=== PATIENT | female | born 2000 | race African-American/Black ===

== ENCOUNTER 2021-05-27 16:47 | Emergency (ER) | payer BC ==
[2021-05-27] MEDS ORDERED: Clindamycin HCl 150 MG Cap PO ONE (17:30)
[2021-05-27] MEDS ORDERED: Acetaminophen/HYDROcodone 325-5 MG Tab PO ONE (17:30)
--- NOTE | 2021-05-27 17:39 | EDM.PDOC ---
ED HPI GENERAL MEDICAL PROBLEM - General Chief Complaint: ENT Problem Stated Complaint: TOOTH PAIN Time Seen by Provider: 05/27/21 17:03 Source of Information: Reports: Patient History Limitations: Reports: No Limitations - History of Present Illness INITIAL COMMENTS - FREE TEXT/NARRATIVE: 20-year-old female presents the emergency department with complaints of dental pain. The patient states that she broke her tooth about a year ago however has been unable to get to a dentist but would not elaborate as to why. She states that approximately 45 minutes ago while she was at work she developed severe pain to her left lower molar, tooth number 17. She states that it is a constant piercing pain to that area and is tearful. Patient states she did take Tylenol however this did not help. She again reiterates that she has been unable to get to a dentist as she just moved here from [place]. Left Tooth/Teeth Pain Score (Numeric/FACES): 10 - Related Data Allergies Allergy/AdvReac Type Severity Reaction Status Date / Time No Known Allergies Allergy Verified 05/27/21 17:05 Home Meds: Home Meds . [No Known Home Meds] 05/27/21 [History] Past Medical History - Past Health History Medical/Surgical History: Denies Medical/Surgical History Social & Family History - Tobacco Use Tobacco Use Status *Q: Never Tobacco User Second Hand Smoke Exposure: No - Recreational Drug Use Recreational Drug Use: No ED ROS ENT - Review of Systems Review Of Systems: Comprehensive ROS is negative, except as noted in HPI. ED EXAM, ENT - Physical Exam Exam: See Below Exam Limited By: No Limitations General Appearance: Alert, WD/WN, Moderate Distress Ears: Normal External Exam, Hearing Grossly Normal Nose: Normal Inspection Mouth/Throat: Normal Inspection, Dental Pain (Left lower molar #17), Gum Swelling (Around left lower molar #17), Other (Left lower molar #17 broken) Head: Atraumatic, Normocephalic Neck: Normal Inspection Respiratory/Chest: No Respiratory Distress, No Accessory Muscle Use Cardiovascular: Regular Rate, Rhythm GI/Abdominal: No Distention (Female) Exam: Deferred Rectal (Female) Exam: Deferred Back: Normal Inspection Extremities: Normal Inspection Neurological: Alert, Oriented, Normal Cognition Psychiatric: Tearful Skin: Warm, Dry, Intact, Normal Color, No Rash Lymphatic: No Adenopathy Course - Vital Signs Text/Narrative:: As stated above the patient developed dental pain to her left lower molar, tooth #17. This started approximately 45 minutes ago and has been constant ever since. The patient is sobbing at the time of my assessment. The gums around the area of the broken tooth are red and swollen. I have ordered for the patient to receive a hydrocodone and 300 mg of clindamycin while in the emergency department. There are no other pharmacies open today as it is Friday so I will send a prescription to the [facility] for hydrocodone to be taken 1-2 tabs every 6 hours as needed for severe pain and clindamycin 300 mg to be taken 4 times daily x7 days. We will provide her with a number of the dentist in [place] that she hopefully can get into to be seen sometime this week. Last Recorded V/S: Last Vital Signs Temp 96.9 F 05/27/21 17:03 Pulse 100 05/27/21 17:03 Resp 20 05/27/21 17:03 BP 150/96 H 05/27/21 17:03 Pulse Ox 100 05/27/21 17:03 - Orders/Labs/Meds Meds: Medications Discontinued Medications Generic Name Dose Route Start Last Admin Trade Name Jerryq PRN Reason Stop Dose Admin Hydrocodone Bitart/Acetaminophen 1 tab 05/27/21 17:30 05/27/21 17:40 Acetaminophen/Hydrocodone 325-5 Mg Tab PO 05/27/21 17:31 1 tab ONETIME ONE Administration Clindamycin HCl 300 mg 05/27/21 17:30 05/27/21 17:40 Clindamycin Hcl 150 Mg Cap PO 05/27/21 17:31 300 mg ONETIME ONE Administration Departure - Departure Time of Disposition: 17:42 Disposition: Home, Self-Care 01 Condition: Good Clinical Impression: Pain, dental - Discharge Information *PRESCRIPTION DRUG MONITORING PROGRAM REVIEWED*: No *COPY OF PRESCRIPTION DRUG MONITORING REPORT IN PATIENT RATNA: No Referrals: PCP,None [Primary Care Provider] - Forms: ED Department Discharge Additional Instructions: You were seen in the emergency department today with dental pain to the left lower molar. While in the emergency department you received 1 hydrocodone and an antibiotic called clindamycin. You were given prescriptions for hydrocodone. You may take 1-2 tabs every 6 hours as needed for more severe pain. Recommend that you also take ibuprofen 600 mg every 6-8 hours for the next 48 hours. You were also given a prescription for an antibiotic called clindamycin. You will need to take 1 tab 4 times daily for the next 7 days. You may also try clove oil applied directly to the area. This tends to help numb the nerve and control the pain. This can be purchased at [facility]. If you cannot find a dentist locally there are several in [place]. One of the dentists is called [facility]. They will work with you and try to get you in the phone number for this is [phone]. I have also had people say they have good luck with [facility] in [place]. Sepsis Event Note (ED) - Evaluation Sepsis Screening Result: No Definite Risk - Focused Exam Vital Signs: Vital Signs Temp Pulse Resp BP Pulse Ox 05/27/21 17:03 96.9 F 100 20 150/96 H 100
== END 2021-05-27 17:50 | disposition home or self-care (01) ==
LOC: JD.ED 16:47
DX: K08.89 Other specified disorders of teeth and supporting structures (principal)
CPT/HCPCS: 99282; A9270; 99283

== ENCOUNTER 2021-06-29 23:00 | Emergency (ER) | payer BC ==
[2021-06-30] MEDS ORDERED: predniSONE 20 MG Tab PO ONE (01:42)
[2021-06-30] MEDS ORDERED: diphenhydrAMINE 50 MG/ML SDV IM ONE (01:43)
--- NOTE | 2021-06-30 01:49 | EDM.PDOC ---
ED HPI GENERAL MEDICAL PROBLEM - General Chief Complaint: Skin Complaint Stated Complaint: RASH Time Seen by Provider: 06/30/21 01:37 Source of Information: Reports: Patient, RN Notes Reviewed History Limitations: Reports: No Limitations - History of Present Illness INITIAL COMMENTS - FREE TEXT/NARRATIVE: Patient is a 20-year-old female who presents to the ER for evaluation of a skin rash. States that she had a protein bar last night at work, that was the only thing that was foreign to her, and she developed a skin rash after eating the protein bar. She states that it seems to move areas of her body, she does have some red, itchy hive-like lesions to medial thighs, and inner arms at this time. She is not changed any sort of lotions, creams or deodorants. She is taken Benadryl, yesterday and today, with little relief. Her last dose was at around 7 PM. Patient denies any other sick-like symptoms, fever/chills, cough/shortness of breath, nausea/vomiting/diarrhea. - Related Data Allergies Allergy/AdvReac Type Severity Reaction Status Date / Time No Known Allergies Allergy Verified 06/29/21 23:15 Home Meds: Home Meds predniSONE 20 mg PO ASDIRECTED #15 tab 06/30/21 [Rx] Past Medical History - Past Health History Medical/Surgical History: Denies Medical/Surgical History Social & Family History - Tobacco Use Tobacco Use Status *Q: Never Tobacco User - Caffeine Use Caffeine Use: Reports: Energy Drinks - Recreational Drug Use Recreational Drug Use: No ED ROS GENERAL - Review of Systems Review Of Systems: Comprehensive ROS is negative, except as noted in HPI. ED EXAM, SKIN/RASH Exam: See Below Exam Limited By: No Limitations General Appearance: Alert, WD/WN, No Apparent Distress Respiratory/Chest: No Respiratory Distress, Lungs Clear, Normal Breath Sounds, No Accessory Muscle Use, Chest Non-Tender Cardiovascular: Normal Peripheral Pulses, Regular Rate, Rhythm, No Edema Peripheral Pulses: 2+: Radial (L), Radial (R) Extremities: Normal Range of Motion, Normal Capillary Refill Neurological: Alert, Oriented, Normal Cognition, No Motor/Sensory Deficits Psychiatric: Normal Affect, Normal Mood Skin: Warm, Dry, Intact, Normal Color, Other (erythematous, raised hive like lesions on medial thighs, upper inner forearms) Course - Vital Signs Last Recorded V/S: Last Vital Signs Temp 98.6 F 06/29/21 23:12 Pulse 96 06/29/21 23:12 Resp 16 06/29/21 23:12 BP 130/83 06/29/21 23:12 Pulse Ox 99 06/29/21 23:12 - Re-Assessments/Exams Free Text/Narrative Re-Assessment/Exam: 06/30/21 01:45 Patient presents to the ER for the evaluation of her hive-like lesions, this does appear to be some sort of irritant breakout. We will go ahead and start her on 40 of prednisone initially, give her 50 mg IM nodule for management, send her home with oral steroids, and have her use Pepcid, and a medication like Zyrtec for any more ongoing issues. Departure - Departure Time of Disposition: 01:47 Disposition: Home, Self-Care 01 Condition: Good Clinical Impression: Allergic reaction Qualifiers: Encounter type: initial encounter Qualified Code(s): T78.40XA - Allergy, unspecified, initial encounter - Discharge Information *PRESCRIPTION DRUG MONITORING PROGRAM REVIEWED*: No *COPY OF PRESCRIPTION DRUG MONITORING REPORT IN PATIENT RATNA: No Instructions: Hives, [id number] Referrals: PCP,None [Primary Care Provider] - Additional Instructions: You were seen in the ER today for your suspected allergic reaction. This is thought to be due to the protein bar you ingested yesterday. You were given some medications to help relieve these symptoms, this seemed to work well for you. This included oral steroids, and IM Benadryl. You will be started on a steroid burst, please take as directed until gone. You may take Benadryl 25 mg every 4 hours as needed for further symptomatic relief, along with Pepcid 20 mg twice daily when you are taking the prednisone. This medication was electronically sent to the [facility] pharmacy located on [address]. If the Benadryl makes you too sleepy during the day, you may try over-the- counter famotidine (Pepcid), and/or an antihistamine medication like Zyrtec (cetirizine) or [place] (fexofenadine). You can take these other medications according to [employer] instructions on the back of the box. Please return to the ER at any time if your symptoms change or worsen. Sepsis Event Note (ED) - Evaluation Sepsis Screening Result: No Definite Risk - Focused Exam Vital Signs: Vital Signs Temp Pulse Resp BP Pulse Ox 06/29/21 23:12 98.6 F 96 16 130/83 99
== END 2021-06-30 02:06 | disposition home or self-care (01) ==
LOC: JD.ED 23:00
DX: T78.1XXA Other adverse food reactions, not elsewhere classified, initial encounter (principal)
CPT/HCPCS: 96372; 99283; J1200; J7512

== ENCOUNTER 2021-12-26 20:35 | Emergency (ER) | payer BC ==
[2021-12-26 21:47] LABS: CORONAVIRUS COVID-19 NAA NEGATIVE (NEGATIVE)
== END 2021-12-26 22:12 | disposition home or self-care (01) ==
LOC: JD.ED 20:35
DX: J10.1 Influenza due to other identified influenza virus with other respiratory manifestations (principal); Z72.0 Tobacco use; Z20.822 Contact with and (suspected) exposure to COVID-19
CPT/HCPCS: 0240U; 99284; 99283

== ENCOUNTER 2022-11-20 16:25 | Emergency (ER) | payer SELFPAY ==
[2022-11-20] MEDS ORDERED: Ondansetron 4 MG Tab.DIS PO ONE (17:05)
[2022-11-20] MEDS ORDERED: Ketorolac 60 MG/2 ML SDV IM ONE (17:05)
[2022-11-20 17:39] LABS: STREP A BY PCR DETECTED (NOT DETECT)
[2022-11-20 17:52] LABS: CORONAVIRUS COVID-19 NAA NEGATIVE (NEGATIVE)
[2022-11-20 18:49] LABS: C. TRACHOMATIS BY PCR NOT DETECTED; N. GONORRHOEAE BY PCR NOT DETECTED
[2022-11-20] MEDS ORDERED: cefTRIAXone 1 GM, Lidocaine 1% 2.1 ML IM ONE ×2 (18:57)
== END 2022-11-20 19:37 | disposition home or self-care (01) ==
LOC: JD.ED 16:25
DX: J02.0 Streptococcal pharyngitis (principal); Z20.822 Contact with and (suspected) exposure to COVID-19
CPT/HCPCS: 0241U; 87491; 87591; 87651; 96372; 99283; A9270; J0696; J1885; J3490

== ENCOUNTER 2023-11-08 21:47 | Emergency (ER) | payer SELFPAY ==
[2023-11-08] MEDS ORDERED: Ibuprofen 600 MG Tab PO ONE (22:45)
[2023-11-08] MEDS ORDERED: Acetaminophen 325 MG Tab PO ONE (22:45)
[2023-11-08 23:28] LABS: CORONAVIRUS COVID-19 NAA NEGATIVE (NEGATIVE); INFLUENZA A NAA NEGATIVE (NEGATIVE); RESPIRATORY SYNCYTIAL VIR NAA NEGATIVE (NEGATIVE)
== END 2023-11-08 23:36 | disposition home or self-care (01) ==
LOC: JD.ED 21:47
DX: B34.9 Viral infection, unspecified (principal); F17.210 Nicotine dependence, cigarettes, uncomplicated; Z86.16 Personal history of COVID-19; Z20.822 Contact with and (suspected) exposure to COVID-19
CPT/HCPCS: 0241U; 81025; 99284; A9270; 99283

== ENCOUNTER 2024-01-24 12:56 | Emergency (ER) | payer SELFPAY ==
[2024-01-24 13:59] LABS: CORONAVIRUS COVID-19 NAA NEGATIVE (NEGATIVE); INFLUENZA A NAA NEGATIVE (NEGATIVE); RESPIRATORY SYNCYTIAL VIR NAA NEGATIVE (NEGATIVE)
== END 2024-01-24 14:35 | disposition home or self-care (01) ==
LOC: JD.ED 12:56
DX: J02.0 Streptococcal pharyngitis (principal)
CPT/HCPCS: 0241U; 87651; 99284